=== PATIENT | male | born 1980 | race Two or more races ===

== ENCOUNTER 2019-07-19 15:47 | Emergency (ER) | payer OTHER ==
[~2019-07-19] VITALS: Ht 182.9 cm; Wt 115.2 kg
[2019-07-19 17:18] VITALS: BP 162/108
== END 2019-07-19 17:34 | disposition home or self-care (01) ==
LOC: ED 17:23
DX: M54.2 Cervicalgia (principal); R51 Headache; I10 Essential (primary) hypertension
CPT/HCPCS: 36415; 71046; 72050; 80053; 84484; 85025; 93005; 99284